=== PATIENT | male | born 1955 | race Caucasian/White ===

== ENCOUNTER → 2017-05-03 | Outpatient (CLI) | payer BC | LOC: BMCIMAGING 10:57 | PROVIDERS: ATTEND Podiatrist Foot & Ankle Surgery | DX: S90.02XA Contusion of left ankle, initial encounter (principal) ==

== ENCOUNTER → 2018-07-05 | Outpatient (CLI) | payer BC | LOC: BMCIMAGING 12:04 | PROVIDERS: ATTEND Family Medicine | DX: M25.512 Pain in left shoulder (principal) ==